=== PATIENT | male | born 1980 | race Two or more races ===

== ENCOUNTER 2021-08-19 21:05 | Emergency (ER) | payer MEDICAID ==
[~2021-08-19] VITALS: Ht 162.6 cm; Wt 65.8 kg
[2021-08-19] MEDS ORDERED: ACETAMINOPHEN 325 MG TAB PO ONE (23:30)
[2021-08-20 01:36] VITALS: BP 142/98
== END 2021-08-19 23:37 | disposition left against medical advice (07) ==
LOC: ER 21:09
DX: H57.12 Ocular pain, left eye (principal); Z53.21 Procedure and treatment not carried out due to patient leaving prior to being seen by health care provider

== ENCOUNTER 2024-09-01 12:29 | Emergency (ER) | payer MEDICAID ==
[~2024-09-01] VITALS: Ht 172.7 cm; Wt 67.2 kg
--- NOTE | 2024-09-01 12:54 | ED.PDOC ---
HPI Comments 43 y.o male presents to the ED for a chief complaint of left sided chest pain for the last 2 days that reoccurred earlier today while eating at home. Patient describes pain as sharp, constant, and is associated with SOB, dizziness and left sided facial numbness. Patient rates pain an 8/10 on the pain scale and states no alleviating or precipitation factors. Patient denies nausea, vomiting, diarrhea, fever, chills, back pain. Patient also denies any family history of heart disease, tobacco, alcohol or substance use. Chief Complaint: Chest Pain Time Seen by MD: 12:35 Reviewed Notes: Nurses Notes, Medications, Allergies Allergies: Coded Allergies: NSAIDs (Verified Allergy, Unknown, 08/19/21) Information Source: Patient Mode of Arrival: Ambulatory Severity: Moderate Timing: Hours Duration: Since onset Location: Chest (L) Quality: Sharp Onset: At Rest Cardiac Risk Factors: None PE Risk Factors: None History of: None Modifying Factors: Nothing Associated Signs and Symptoms: SOB Past Medical History PAST MEDICAL HISTORY: Denies Surgical History: Denies all surgeries Family History Family History: Reviewed,noncontributory to illness, No family hx of Cancer, No family hx of DM, No family hx of Heart amado, No family hx of HTN, No family hx ofKidney amado, No family hx of Liver amado, No family hx of Lung amado, No family hx of Stroke Social History Smoker: Non-Smoker Alcohol: Denies ETOH Use Drugs: Denies Drug Use Lives In: Home Constitutional: denies: chills, diaphoresis, fatigue, fever, malaise, sweats, weakness, others EENTM: denies: blurred vision, double vision, ear bleeding, ear discharge, ear drainage, ear pain, ear ringing, eye pain, eye redness, hearing loss, mouth pain, mouth swelling, nasal discharge, nose bleeding, nose congestion, nose pain, photophobia, tearing, throat pain, throat swelling, voice changes, others Respiratory: reports: SOB at rest, shortness of breath, SOB with excertion; denies: cough, hemoptysis, orthopnea, stridor, wheezing, others Cardiovascular: reports: chest pain; denies: dizzy spells, diaphoresis, Dyspnea on exertion, edema, irregular heart beat, left arm pain, lightheadedness, palpitations, PND, syncope, others Gastrointestinal: denies: abdomen distended, abdominal pain, blood streaked bowels, constipated, diarrhea, dysphagia, difficulty swallowing, hematemesis, melena, nausea, poor appetite, poor fluid intake, rectal bleeding, rectal pain, vomiting, others Genitourinary: denies: burning, dysuria, flank pain, frequency, hematuria, incontinence, penile discharge, penile sore, pain, testicle pain, testicle swelling, urgency, others Neurological: reports: dizziness; denies: fainting, headache, left sided numbness, left sided weakness, numbness, paresthesia, pre-existing deficit, right sided numbness, right sided weakness, seizure, speech problems, tingling, tremors, weakness, others Musculoskeletal: denies: back pain, gout, joint pain, joint swelling, muscle pain, muscle stiffness, neck pain, others Integumetry: denies: bruises, change in color, change in hair/nails, dryness, laceration, lesions, lumps, rash, wounds, others Allergic/Immunocompromised: denies: Difficulty Healing, Frequent Infections, Hives, Itching, others Hematologic/Lymphatic: denies: anemia, blood clots, easy bleeding, easy bruising, swollen glands, others Endocrine: denies: excessive hunger, excessive sweating, excessive thirst, excessive urination, flushing, intolerance to cold, intolerance to heat, unexplained weight gain, unexplained weight loss, others Psychiatric: denies: anxiety, bipolar disorder, depression, hopeless, panic disorder, schizophrenia, sleepless, suicidal, others All Other Systems: Reviewed and Negative Physical Exam General Appearance: No Apparent Distress HEENT: Other (Pupils and face symmetric. Moist mucous membranes.) Neck: Full Range of Motion, Normal Inspection Respiratory: Lungs Clear, No Accessory Muscle Use, No Respiratory Distress, Normal Breath Sounds Cardiovascular: No Edema, No JVD, Regular Rate/Rhythm Breast Exam: Deferred Gastrointestinal: Non Tender, Soft Genitalia: Deferred Pelvic: Deferred Rectal: Deferred Extremities: Normal inspection, Normal range of motion, Non-tender, No pedal edema Neurologic: Alert (Oriented x4), Normal Affect, Normal Mood, Other (Ambulatory without difficulty) Cerebellar Function: NOT DONE Reflexes: NOT DONE Skin: Dry, Normal Color, Warm Lymphatic: NOT DONE EKG EKG : Comments Sinus rhythm, rate 69, normal intervals, normal axis, normal QRS, no ST/T change s. Was a procedure done? Was a procedure done?: No CP Differential Dx Differential Diagnosis: Pulmonary Embolus Differential Diagnosis: Angina, Chest Wall Pain, Costochondritis, Esophageal reflux/spasm, Gastritis, Myocardial Infarction, Pericarditis, Pneumonia, Pneumothorax X-Ray, Labs, Meds, VS Vital Signs Date Time Temp Pulse Resp B/P (MAP) Pulse Ox O2 Delivery O2 Flow Rate FiO2 09/01/24 14:38 138/83 09/01/24 13:53 98.9 71 15 134/78 (96) 96 98.9 09/01/24 13:51 134/78 09/01/24 13:36 69 09/01/24 12:39 97.8 75 20 139/86 (103) 98 97.8 09/01/24 12:38 70 Lab Test 09/01/24 15:42 09/01/24 13:33 09/01/24 12:43 09/01/24 12:34 Range/Units Troponin I High Sensitivity < 3 L < 3 L < 3 L </=54 ng/L POC Glucose 115 H 70-106 mg/dl White Blood Count 5.2 4.4-10.8 10^3/uL Red Blood Count 5.04 4.5-5.90 10^6/uL Hemoglobin 15.1 13.5-17.5 g/dL Hematocrit 44.0 41.0-53.0 % Mean Corpuscular Volume 87.4 80.0-100.0 fL Mean Corpuscular Hemoglobin 29.9 28.0-32.0 pg Mean Corpuscular Hemoglobin Concent 34.2 32.0-36.0 g/dL Red Cell Distribution Width 14.1 11.8-14.3 % Platelet Count 222 140-450 10^3/uL Mean Platelet Volume 8.6 6.9-10.8 fL Neutrophils (%) (Auto) 54.0 37.0-80.0 % Lymphocytes (%) (Auto) 31.9 10.0-50.0 % Monocytes (%) (Auto) 10.3 0.0-12.0 % Eosinophils (%) (Auto) 2.8 0.0-7.0 % Basophils (%) (Auto) 1.0 0.0-2.0 % Neutrophils # (Auto) 2.8 1.6-8.6 10 ^3/uL Lymphocytes # (Auto) 1.7 0.4-5.4 10 ^3/uL Monocytes # (Auto) 0.5 0-1.3 10 ^3/uL Eosinophils # (Auto) 0.1 0-0.8 10 ^3/uL Basophils # (Auto) 0.1 0-0.2 10 ^3/uL Nucleated Red Blood Cells 0.1 % Sodium Level 143 136-145 mmol/L Potassium Level 4.0 3.5-5.1 mmol/L Chloride Level 109 H 98-107 mmol/L Carbon Dioxide Level 25 20-31 mmol/L Anion Gap 9 5-15 Blood Urea Nitrogen 14 9-23 mg/dL Creatinine 1.01 0.700-1.30 mg/dL Glomerular Filtration Rate Calc 95 >90 mL/min BUN/Creatinine Ratio 13.9 10.0-20.0 Serum Glucose 113 H 74-106 mg/dL Calcium Level 9.4 8.7-10.4 mg/dL B-Type Natriuretic Peptide 11.86 0-100 pg/mL Current Medications Medications (Trade) Dose Ordered Sig/Devora Route Start Time Stop Time Status Last Admin Aspirin 325 mg ONCE ONCE PO 09/01/24 13:00 09/01/24 13:01 DC 09/01/24 13:39 Acetaminophen (Tylenol Tablet Or Capsule) 1,000 mg ONCE ONCE PO 09/01/24 13:00 09/01/24 13:01 DC 09/01/24 13:39 Nitroglycerin (Nitrodur 0.4MG/ Hr) 1 patch ONCE ONCE TD 09/01/24 13:45 09/01/24 14:09 DC 09/01/24 13:51 EXAM: XY CHEST PORTABLE Indication: cp Technique: Single frontal view of the chest was obtained Comparison: None FINDINGS: Lines and Tubes: None Lungs: No focal consolidation. Pleura: No effusion. No pneumothorax. Cardiomediastinal contours: Unremarkable Bones: No acute osseous abnormality. IMPRESSION: No acute cardiopulmonary disease. X-Ray, Labs, Meds, VS Comment 43-year-old male with no significant past medical history complaining of chest pain Vitals unremarkable Exam unremarkable Rhythm strip independently interpreted by me: Sinus rhythm, rate 69, no ectopy. Chest x-ray unremarkable CBC, BMP, BNP and 2 serial troponins unremarkable Patient treated with the following in the ED: Tylenol 1 g p.o., aspirin 325 mg p.o., nitro patch to chest wall On re-evaluation, patient states pain has improved. Vitals were stable. Hospitalization was considered, however patient had rapid improvement of symptoms with treatment in the ED, and I no longer feel hospitalization is necessary. Heart Score is 0, and PERC criteria are satisfied. Patient now appears stable for discharge with close outpatient follow-up with his primary physician for referral to a food service sales representatives. Rx Tylenol Time of 1ST Reevaluation: 13:23 Reevaluation 1ST: Unchanged Patient Education/Counseling: Diagnosis, Treatment, Prognosis Family Education/Counseling: No Family Present Departure 1 Departure Time of Disposition: 18:01 Impression: Primary Impression: Chest pain with low risk for cardiac etiology Disposition: 01 HOME / SELF CARE / HOMELESS Condition: Stable Additional Instructions: Your blood tests, including screening tests for heart attack and heart failure, were unremarkable. Your chest x-ray was normal. Your EKG was normal. I have prescribed pain medication. Follow-up with your primary doctor in 1-2 days for referral to a food service sales representatives for further evaluation of your chest pain. Alternatively, follow-up directly with Dr. [place]. e-Prescriptions Acetaminophen (Tylenol Extra Strength) 500 Mg Tab 1000 MG PO Q6HP PRN, #30 TAB Prov: PETROS BOLAND MD 09/01/24 Discharged With: Relative Critical Care Note Critical Care Time?: No Stability Stability form required: No Heart Score Heart Score: Heart Score Response (Comments) Value History Slightly Suspicious 0 EKG Normal 0 Age <45 0 Risk Factors No known risk factors 0 Troponin Normal limit 0 Total 0 I personally scribed for PETROS BOLAND MD ([email or web address]) on 09/01/24 at 12:54. Electronically submitted by Dulce Braxton ([facility]). I personally scribed for PETROS BOLAND MD ([facility] on 09/01/24 at 13:26. Electronically submitted by Dulce Braxton ([facility]). I personally scribed for PETROS BOLAND MD ([facility] on 09/01/24 at 13:41. Electronically submitted by Dulce Braxton ([facility]). PETROS BOLAND MD Sep 01, 2024 12:54
[2024-09-01] MEDS ORDERED: NITROGLYCERIN 2% OINT 1GM PKG TD ONE (13:00)
[2024-09-01 13:08] LABS: Basophils # (auto) 0.1 10 ^3/uL (0-0.2); Eosinophils # (auto) 0.1 10 ^3/uL (0-0.8); Eosinophils % (auto) 2.8 % (0.0-7.0); Hemoglobin 15.1 g/dL (13.5-17.5); Lymphocytes # (auto) 1.7 10 ^3/uL (0.4-5.4); Lymphocytes % (auto) 31.9 % (10.0-50.0); Mean Corpuscular Hemoglobin 29.9 pg (28.0-32.0); Mean Corpuscular Hgb Conc. 34.2 g/dL (32.0-36.0); Mean Corpuscular Volume 87.4 fL (80.0-100.0); Monocytes # (auto) 0.5 10 ^3/uL (0-1.3); Monocytes % (auto) 10.3 % (0.0-12.0); Neutrophils # (auto) 2.8 10 ^3/uL (1.6-8.6); Nucleated Red Blood Cells % 0.1 %; Platelet Count (auto) 222 10^3/uL (140-450); Red Blood Cells 5.04 10^6/uL (4.5-5.90); Red Cell Distribution Width 14.1 % (11.8-14.3); White Blood Cell 5.2 10^3/uL (4.4-10.8)
[2024-09-01 13:09] LABS: Sodium 143 mmol/L (136-145)
[2024-09-01 13:10] LABS: Anion Gap 9 (5-15); Calcium 9.4 mg/dL (8.7-10.4); Carbon Dioxide 25 mmol/L (20-31)
[2024-09-01 13:15] LABS: BUN/Creatinine Ratio 13.9 (10.0-20.0); Blood Urea Nitrogen 14 mg/dL (9-23)
[2024-09-01 13:16] LABS: Chloride 109 mmol/L (98-107); Glucose 113 mg/dL (74-106)
--- NOTE | 2024-09-01 13:23 | DVH ---
EXAM: XY CHEST PORTABLE Indication: cp Technique: Single frontal view of the chest was obtained Comparison: None FINDINGS: Lines and Tubes: None Lungs: No focal consolidation. Pleura: No effusion. No pneumothorax. Cardiomediastinal contours: Unremarkable Bones: No acute osseous abnormality. IMPRESSION: No acute cardiopulmonary disease.
--- NOTE | 2024-09-01 13:37 | ECG ---
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
[2024-09-01] MEDS: ASPirin 325 MG TAB PO ONE (13:39)
[2024-09-01] MEDS: ACETAMINOPHEN 500 MG TAB or CAP PO ONE (13:39)
[2024-09-01] MEDS: NITROGLYCERIN 0.4MG/HR TOPICAL PATCH TD ONE (13:51)
[2024-09-01] MEDS ORDERED: ACET-1304 PO (18:03)
[2024-09-01 18:20] VITALS: BP 122/86; PULSE 70; RESP 16; TEMP 98; O2SAT 96
--- NOTE | 2024-09-02 06:59 | ECG ---
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
== END 2024-09-01 18:21 | disposition home or self-care (01) ==
LOC: ER 12:41
DX: R07.89 Other chest pain (principal); R06.02 Shortness of breath; R42 Dizziness and giddiness; Z79.1 Long term (current) use of non-steroidal anti-inflammatories (NSAID)
CPT/HCPCS: 36415; 71045; 80048; 82947; 82962; 83880; 84484; 85025; 93005

== ENCOUNTER 2025-02-20 12:07 | Emergency (ER) | payer MEDICAID ==
[~2025-02-20] VITALS: Ht 162.6 cm; Wt 55.0 kg
[~2025-02-20 12:07] MED LIST: ACET-1304 PO
[2025-02-20 13:19] LABS: Hematocrit 45.7 % (41.0-53.0); Hemoglobin 15.5 g/dL (13.5-17.5); Mean Corpuscular Hemoglobin 29.7 pg (28.0-32.0); Mean Corpuscular Volume 87.8 fL (80.0-100.0); Nucleated Red Blood Cells % 0.0 %
--- NOTE | 2025-02-20 13:30 | ED.PDOC ---
HPI Comments 44 y.o male presents to the ED for a chief complaint of left sided chest pain that started today around 8am while driving. Patient describes pain as sharp that worsens with movement and radiates to his left rib. Patient denies any nausea, vomiting, abdominal pain, SOB, fever, chills, or previous cardiac history. No medical history reports and also denies substance, alcohol and tobacco use. Chief Complaint: Chest Pain Time Seen by MD: 12:19 Reviewed Notes: Nurses Notes, Medications, Allergies Allergies: Coded Allergies: NSAIDs (Verified Allergy, Unknown, 08/19/21) Home Meds Active Scripts Acetaminophen (Tylenol Extra Strength) 500 Mg Tab, 1000 MG PO Q6HP PRN, #30 TAB Prov:PETROS BOLAND MD 09/01/24 Information Source: Patient Mode of Arrival: Ambulatory Severity: Moderate Timing: Hours Duration: Since onset Location: Chest (L) Radiation: No Radiation Quality: Sharp Onset: At Rest Cardiac Risk Factors: None PE Risk Factors: None History of: None Modifying Factors: Nothing Associated Signs and Symptoms: None Past Medical History PAST MEDICAL HISTORY: Denies Surgical History: Denies all surgeries Family History Family History: Reviewed,noncontributory to illness, No family hx of Cancer, No family hx of DM, No family hx of Heart amado, No family hx of HTN, No family hx ofKidney amado, No family hx of Liver amado, No family hx of Lung amado, No family hx of Stroke Social History Smoker: Non-Smoker Alcohol: Denies ETOH Use Drugs: Denies Drug Use Lives In: Home Constitutional: denies: chills, diaphoresis, fatigue, fever, malaise, sweats, weakness, others EENTM: denies: blurred vision, double vision, ear bleeding, ear discharge, ear drainage, ear pain, ear ringing, eye pain, eye redness, hearing loss, mouth pain, mouth swelling, nasal discharge, nose bleeding, nose congestion, nose pain, photophobia, tearing, throat pain, throat swelling, voice changes, others Respiratory: denies: cough, hemoptysis, orthopnea, SOB at rest, shortness of breath, SOB with excertion, stridor, wheezing, others Cardiovascular: reports: chest pain; denies: dizzy spells, diaphoresis, Dyspnea on exertion, edema, irregular heart beat, left arm pain, lightheadedness, palpitations, PND, syncope, others Gastrointestinal: denies: abdomen distended, abdominal pain, blood streaked bowels, constipated, diarrhea, dysphagia, difficulty swallowing, hematemesis, melena, nausea, poor appetite, poor fluid intake, rectal bleeding, rectal pain, vomiting, others Genitourinary: denies: burning, dysuria, flank pain, frequency, hematuria, incontinence, penile discharge, penile sore, pain, testicle pain, testicle swelling, urgency, others Neurological: denies: dizziness, fainting, headache, left sided numbness, left sided weakness, numbness, paresthesia, pre-existing deficit, right sided numbness, right sided weakness, seizure, speech problems, tingling, tremors, weakness, others Musculoskeletal: denies: back pain, gout, joint pain, joint swelling, muscle pain, muscle stiffness, neck pain, others Integumetry: denies: bruises, change in color, change in hair/nails, dryness, laceration, lesions, lumps, rash, wounds, others Allergic/Immunocompromised: denies: Difficulty Healing, Frequent Infections, Hives, Itching, others Hematologic/Lymphatic: denies: anemia, blood clots, easy bleeding, easy bruising, swollen glands, others Endocrine: denies: excessive hunger, excessive sweating, excessive thirst, excessive urination, flushing, intolerance to cold, intolerance to heat, unexplained weight gain, unexplained weight loss, others Psychiatric: denies: anxiety, bipolar disorder, depression, hopeless, panic disorder, schizophrenia, sleepless, suicidal, others All Other Systems: Reviewed and Negative Physical Exam General Appearance: Moderate Distress HEENT: Normal ENT Inspection, Pharynx Normal, TMs Normal Neck: Full Range of Motion, Non-Tender, Normal, Normal Inspection Respiratory: Chest Non-Tender, Lungs Clear, No Accessory Muscle Use, No Respiratory Distress, Normal Breath Sounds Cardiovascular: No Edema, No JVD, No Murmur, No Gallop, Normal Peripheral Pulses, Regular Rate/Rhythm Breast Exam: Deferred Gastrointestinal: No Organomegaly, Non Tender, No Pulsatile Mass, Normal Bowel Sounds, Soft Genitalia: Deferred Pelvic: Deferred Rectal: Deferred Extremities: No calf tenderness, Normal capillary refill, Normal inspection, Normal range of motion, Non-tender, No pedal edema Musculoskeletal : Apperance: Normal Neurologic: Alert, 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 Was a procedure done?: No CP Differential Dx Differential Diagnosis: A-fib, A-Flutter, Angina, Anxiety / Panic Attack, Atrial Dysrhythmia, Electrolyte Disorder, N/A Differential Diagnosis: Angina, Chest Wall Pain, Cholelithiasis, Costo chondritis, Pericarditis X-Ray, Labs, Meds, VS Vital Signs Date Time Temp Pulse Resp B/P (MAP) Pulse Ox O2 Delivery O2 Flow Rate FiO2 02/20/25 13:30 82 02/20/25 13:03 73 02/20/25 12:10 82 02/20/25 12:09 99.1 78 18 145/89 96 99.1 Lab Test 02/20/25 13:49 02/20/25 12:50 Range/Units Troponin I High Sensitivity Pending < 3 L </=54 ng/L White Blood Count 8.1 4.4-10.8 10^3/uL Red Blood Count 5.21 4.5-5.90 10^6/uL Hemoglobin 15.5 13.5-17.5 g/dL Hematocrit 45.7 41.0-53.0 % Mean Corpuscular Volume 87.8 80.0-100.0 fL Mean Corpuscular Hemoglobin 29.7 28.0-32.0 pg Mean Corpuscular Hemoglobin Concent 33.8 32.0-36.0 g/dL Red Cell Distribution Width 13.9 11.8-14.3 % Platelet Count 234 140-450 10^3/uL Mean Platelet Volume 8.8 6.9-10.8 fL Neutrophils (%) (Auto) 72.0 37.0-80.0 % Lymphocytes (%) (Auto) 15.3 10.0-50.0 % Monocytes (%) (Auto) 10.4 0.0-12.0 % Eosinophils (%) (Auto) 1.6 0.0-7.0 % Basophils (%) (Auto) 0.7 0.0-2.0 % Neutrophils # (Auto) 5.8 1.6-8.6 10 ^3/uL Lymphocytes # (Auto) 1.2 0.4-5.4 10 ^3/uL Monocytes # (Auto) 0.8 0-1.3 10 ^3/uL Eosinophils # (Auto) 0.1 0-0.8 10 ^3/uL Basophils # (Auto) 0.1 0-0.2 10 ^3/uL Nucleated Red Blood Cells 0.0 % Patient alert. Complaining of chest pain. Vitals stable. Answering questions pain EKG reviewed does not show any acute changes. Possible anxiety. WBC within normal limits. Hemoglobin within normal limits. No risk factors for coronary artery disease. Was given aspirin. Explained to the patient. Was told to follow up with his primary care physician. Was told to come back if there is any problem. Time of 1ST Reevaluation: 13:30 Reevaluation 1ST: Unchanged Patient Education/Counseling: Diagnosis, Treatment, Prognosis Family Education/Counseling: No Family Present SEPSIS Sepsis Screen Date sepsis recognized/suspect: Feb 20, 2025 Time Sepsis recognized/suspect: 1215 Recent Procedure: No On Antibiotic Therapy: No Respiratory Rate >20: No Heart Rate >90: No Temp<36 C (96.8 F) or >38.3 C: No SBP <90 or MAP <65 mmHG: No New Acute Mental Status Change: No Is the patient on CPAP, BIPAP,: No Physician Orders Troponin-I Hs (02/20/25 13:42) Troponin-I Hs (02/20/25 15:42) Drug Screen (02/20/25 12:42) Electrocardigram (02/20/25 12:52) Electrocardigram (02/20/25 13:52) Electrocardigram (02/20/25 15:52) Vital Signs Date Time Temp Pulse Resp B/P (MAP) Pulse Ox O2 Delivery O2 Flow Rate FiO2 02/20/25 13:30 82 02/20/25 13:03 73 02/20/25 12:10 82 02/20/25 12:09 99.1 78 18 145/89 96 99.1 Laboratory Tests Test 02/20/25 12:50 White Blood Count 8.1 10^3/uL (4.4-10.8) Departure 1 Departure Time of Disposition: 14:14 Impression: Primary Impression: Musculoskeletal chest pain Additional Impression: Anxiety Disposition: 01 HOME / SELF CARE / HOMELESS Condition: Good Discharged With: Self Critical Care Note Critical Care Time?: No Stability Stability form required: No Heart Score Heart Score: Heart Score Response (Comments) Value History Slightly Suspicious 0 EKG Normal 0 Age <45 0 Risk Factors No known risk factors 0 Troponin Normal limit 0 Total 0 I personally scribed for LORE TALLEY MD ([email or web address]) on 02/20/25 at 13:30. Electronically submitted by Dulce Braxton ([facility] LORE TALLEY MD Feb 20, 2025 13:30
[2025-02-20 16:06] VITALS: PULSE 83; RESP 17; TEMP 98.3; O2SAT 98
--- NOTE | 2025-02-20 16:37 | DVH ---
CLINICAL HISTORY: chest pains TECHNIQUE: Single view of the chest was obtained. COMPARISON: XY CHEST PORTABLE on DOS: 09/01/24 FINDINGS: The heart size and pulmonary vasculature are normal. There is mild patchy left lower lung opacity lat erally. IMPRESSION: Mild left lower lung opacity laterally, favor infection.
[2025-02-20 16:57] LABS: Amphetamine Screen, Urine Neg (NEGATIVE); Barbiturate Scree,Urine Neg (NEGATIVE); Benzodiazephine Screen, Urine Neg (NEGATIVE); Cocaine Screen, Urine Neg (NEGATIVE); Opiate Scree,Urine Neg (NEGATIVE); Phencyclidine Screen, Urine Neg (NEGATIVE)
[2025-02-20 16:58] LABS: Cannabinoid Screen, Urine Neg (NEGATIVE)
[2025-02-20 18:53] VITALS: BP 127/85; PULSE 84; RESP 16; O2SAT 96
--- NOTE | 2025-03-03 06:12 | ECG ---
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
--- NOTE | 2025-03-17 06:50 | ECG ---
[facility] Test Date: 2025-02-20 Test Time: 12:10:24 Pat Name: BETO COPELAND Department: ED Room: Gender: M Emergency Room Physician: SHEILA : 1980 Requested By: LORE TALLEY Order Number: [id number] Reading MD: Darvin Beckman Measurements Intervals [place] Rate: 82 P: 72 OR: 146 QRS: 36 QRSD: 91 T: 53 QT: 371 QTc: 434 Interpretive Statements Sinus rhythm Electronically Signed On 02-21-2025 18:48:36 PDT by Darvin Beckman Electronically Signed On 03-02-2025 13:37:41 PDT by Darvin Beckman Electronically Signed On 03-10-2025 13:10:49 PST by Darvin Beckman Electronically Signed On 03-20-2025 15:33:30 PST by Darvin Beckman Please click the below link to view image of tracing.
== END 2025-02-20 17:35 | disposition home or self-care (01) ==
LOC: ER 12:07
DX: R07.89 Other chest pain (principal); F41.9 Anxiety disorder, unspecified; Z88.6 Allergy status to analgesic agent; Z79.899 Other long term (current) drug therapy
CPT/HCPCS: 36415; 71045; 80307; 84484; 85025; 93005